=== PATIENT | male | born 1975 | race Caucasian/White ===

== ENCOUNTER 2020-09-30 14:07 | Emergency (ER) | payer OTHER ==
[2020-09-30 17:14] LABS: BILIRUBIN NEGATIVE (NEGATIVE); BLOOD NEGATIVE Ery/uL (NEGATIVE); CLARITY CLEAR (CLEAR); COLOR YELLOW (YELLOW); GLUCOSE (U) NORMAL (NORMAL); LEUKOCYTES NEGATIVE Leu/uL (NEGATIVE); NITRITE NEGATIVE (NEGATIVE); PROTEIN NEGATIVE (NEGATIVE); SPECIFIC GRAVITY <=1.005 (1.001-1.030); UROBILINOGEN >=8.0 mg/dL (0.2-1.0); pH 6.5 (5.0-9.0)
[2020-09-30 17:33] LABS: BASOPHIL 1.5 % (0-2); EOSINOPHIL 5.4 % (0-5); HCT 34.8 % (42.0-52.0); HGB 12.6 g/dl (13.2-18.0); LYMPHOCYTE 23.4 % (15-48); MCH 29.9 pg (25.0-31.0); MCHC 36.2 g/dL (32.0-36.0); MCV 82.7 fL (78.0-100.0); MONOCYTE 12.4 % (0-12); MPV 9.8 fL (6.0-9.5); NEUTROPHIL 57.1 % (41-80); NRBC 0; PLT 100 K/uL (150-400); RBC 4.21 M/uL (4.70-6.00); RDW 13.6 % (11.5-14.0); WBC 4.1 K/uL (4.0-10.5)
[2020-09-30 17:48] LABS: ALBUMIN 3.1 g/dL (3.4-5.0); BILIRUBIN - TOTAL 1.4 mg/dL (0.2-1.0); CREATININE 0.75 mg/dL (0.67-1.17); GLOBULIN (CALCULATION) 3.7 g/dL; POTASSIUM 3.5 mmol/L (3.5-5.1); TOTAL PROTEIN 6.8 g/dL (6.4-8.2)
== END 2020-09-30 19:28 | disposition home or self-care (01) ==
LOC: FER 14:07
PROVIDERS: Physician Assistant
DX: R56.9 Unspecified convulsions (principal); F17.200 Nicotine dependence, unspecified, uncomplicated; Z87.442 Personal history of urinary calculi; Z88.2 Allergy status to sulfonamides; Z88.8 Allergy status to other drugs, medicaments and biological substances
CPT/HCPCS: 36415; 70450; 80053; 81003; 85025